=== PATIENT | female | born 1960 | race Caucasian/White ===

== ENCOUNTER 2016-07-20 07:15 | Day surgery (SDC) | payer OTHER ==
[~2016-07-20] VITALS: Ht 162.6 cm; Wt 56.2 kg
[~2016-07-20 07:15] MED LIST: ALBU8.5H2 INHALATION; BRIM5DRO OP; CETI10CA PO; CHOL40003 PO; CLON0.5T PO; CYCL10TA9 PO; DEXT350P5 PO; DOCU-41 PO; DULO30CA PO; DULO60CA42 PO; ESTR50GE TD; KEN25CR EXT; KLO5T PO; LEVO50TA6 PO; VIT1TABL83 PO
[2016-07-20 07:38] VITALS: BP 117/81; PULSE 90; O2SAT 100
[2016-07-20] MEDS ORDERED: 0.9% Sodium Chloride 1,000 ML IV PRN (07:48)
[2016-07-20] MEDS ORDERED: Sodium Chloride LOK Flush 10 mL Syringe IV PRN (07:50)
[2016-07-20] MEDS ORDERED: fentaNYL-PF 50 mCg/mL 2 mL Inj IVPUSH PRN (07:50)
[2016-07-20 08:57] VITALS: BP 101/66; PULSE 74; RESP 14; O2SAT 100
--- NOTE | 2016-07-20 08:58 | PCM.ENDEGD ---
EGD Date of Service: July 20, 2016 Physician Abdelrahman Sol MD Pre Procedure Diagnosis: Early satiety and abdominal pain Post Procedure Dx & Findings: Irregular Z line gastritis blunted duodenal folds Procedure Esophagogastroduodenoscopy PROCEDURE IN DETAIL: After proper sedation, Olympus video endoscope was inserted into patient's mouth and esophagus was successfully intubated. Scope introduced esophagus. Esophagus showed normal shiny whitish mucosa consistent with squamous cell component. Z line was intact at 36 cm from the incisors. However one spot appeared irregular and this was biopsied. Further advanced to the stomach. Stomach showed normal shiny mucosa with normal appearing rugae folds without any ulcer mass erosion in the cardia body and fundus. However in the antrum, there was redness edema consistent with mild gastritis. Biopsies obtained. Cardia fundus body antrum pylorus were all visualized. Retroflexion was done. Stomach was easily inflated and deflatable using air. Scope further events to the distal duodenum. Duodenum revealed normal villous structures with blunt duodenal folds without any mass ulcer erosion. 5 biopsies obtained. Impression Irregular Z line Antritis Blunted duodenal folds Recommendation Await biopsies Presedation Assessment Risks and Benefits Informed consent was obtained from the patient after all risks and benefits including but not limited to drug reaction, infection, pain, bleeding, perforation, as well as alternatives were discussed. Patient monitoring Continuous pulse oximetry, cardiac monitoring, blood pressure monitoring, IV access, and oxygen at 2L per nasal cannula. Periprocedural Fentanyl: Fentanyl 150mcg Incrementally Midazolam: Midazolam 9mg Incrementally Complications There were no periprocedural complications identified. Post Procedure Plan Post Procedure Recommendations 1. Restrict activities today. 2. Resume normal activities in the morning. 3. Resume medications. 4. GERD behavioral modification: - Avoid fatty, acidic, spicy, large meals - Do not lie down after meals - Do not eat or drink anything for at least 2 1/2 hours before going to bed at night - Discontinue tobacco and alcohol - Decrease or avoid caffeine - Avoid chocolate and mints - Decrease weight - Avoid aspirin and non steroidal anti-inflammatory agents (NSAID) such as Aleve, Advil, Mobic, Naproxen, Ibuprofen, etc 5. Add proton pump inhibitor. Take 30 minutes before 1st meal of the day. 6. Patient informed of normal post procedure side effects as bloating, drowsiness, blood streaking in the stool 7. If gastric biopsy reveal H.pylori, continue with appropriate treatment 8. If small bowel biopsy reveals celiac, continue with appropriate treatment 9. Please don't hesitate to call me with any questions Abdelrahman Sol MD July 20, 2016 08:58
--- NOTE | 2016-07-20 09:00 | PCM.ENDCOL ---
Colonoscopy Date of Service: July 20, 2016 Physician Abdelrahman Sol MD Pre Procedure Diagnosis: Change in bowel patterns constipation diarrhea resolved Post Procedure Dx & Findings: Polyp hemorrhoids Procedure Colonoscopy PROCEDURE IN DETAIL: Prep adequate Withdrawal time 12 minutes After unremarkable rectal examination the Olympus video colonoscope was inserted patient's anal canal and was advanced to cecum. Landmarks were identified including the ileocecal valve and appendiceal orifice. Scope further into the terminal ileum. Advanced 10 cm. Normal villous structure noted without any ulcer mass erosions. Scope was withdrawn systematically. Visualized colonic mucosa showed healthy shiny mucosa with normal healthy- appearing vasculature. In the cecum, there was a 1 mm polyp which was removed completely with cold forceps. In the transverse colon there were 2 polyps. One was 4 mm in size which was removed completely using cold snare. The other was 1 mm in size which was removed completely using cold forceps. In the rectum retroflexion was done which showed hemorrhoids. Anal canal was inspected carefully on the way out and hemorrhoids noted. Impression Polyp 3 status post complete removal Hemorrhoids Normal TI Recommendation Repeat colonoscopy 3 years Presedation Assessment Risks and Benefits Informed consent was obtained from the patient after all risks and benefits including but not limited to drug reaction, infection, pain, bleeding, perforation, as well as alternatives were discussed. Patient monitoring Continuous pulse oximetry, cardiac monitoring, blood pressure monitoring, IV access, and oxygen at 2L per nasal cannula. Complications There were no periprocedural complications identified. Post Procedure Plan Post Procedure Recommendations 1. Restrict activities today. 2. Resume normal activities in the morning. 3. Resume medications. 4. Patient informed of normal post procedure side effects as bloating, drowsiness, blood streaking in the stool. 5. average risk CRCS. If colon polyps come back as: -Hyperplastic- can repeat colonoscopy in 10 years -Tubular adenoma- repeat colonoscopy in 5 years -Tubulovillous/villous adenoma- repeat colonoscopy in 3 years -If any dysplasia- return to clinic as soon as possible 6. Please don't hesitate to call me with any questions. Abdelrahman Sol MD July 20, 2016 09:00
[2016-07-20 09:12] VITALS: BP 97/63; PULSE 69; RESP 16; O2SAT 100
--- NOTE | 2016-07-21 11:24 | PATH ---
SURGICAL PATHOLOGY Attending Physician:Abdelrahman Sol M.D. CASE STATUS: Signed Out PATIENT NAME: PETER PAULSON PID: [id number] : 1960 DATE COLLECTED:07/20/2016 15:36 SPECIMEN: 1: Esophagus, Biopsy 2: Duodenum, Biopsy 3: Gastric, Biopsy 4: Colon, Biopsy 5: Colon, Biopsy CLINICAL HISTORY: 1. DISTAL ESOPHAGUS 2. DUODENUM 3. GASTRIC 4. CECUM POLYP 5. TRANSVERSE COLON POLYP X2 FINAL DIAGNOSIS: 1.DISTAL ESOPHAGUS BIOPSY: SQUAMOUS MUCOSA AND GASTRIC CARDIA-TYPE MUCOSA NEGATIVE FOR SPECIALIZED METAPLASIA OF CANTU' S-TYPE ESOPHAGUS. Negative for dysplasia and malignancy. Rare eosinophil present within squamous intraepithelium consistent with changes of chronic reflux. 2.DUODENUM BIOPSY: FRAGMENTS OF NORMAL-APPEARING DUODENUM MUCOSA. Normal delicate mucosal villi present. Negative for significant inflammation, dysplasia and malignancy. 3.GASTRIC BIOPSY: MILD CHRONIC GASTRITIS INVOLVING ANTRAL AND FUNDIC MUCOSA. Negative for evidence of Helicobacter. Negative for intestinal metaplasia. Negative for dysplasia and malignancy. 4.CECUM POLYP: TUBULAR ADENOMA. 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 ICD10 CODE D12.0 GROSS DESCRIPTION: The specimen is received in five formalin filled containers labeled with the patient's name. 1). The specimen is sublabeled "distal esophagus" and consists of a 0.2 x 0.2 x 0.2 CM portion of tissue which is entirely submitted in cassette 1A. 2). The specimen is sublabeled "duodenum" and consists of 3 portions of tissue which aggregate to 0.2 x 0.2 x 0.2 CM. The specimen is entirely submitted in cassette 2A. 3). The specimen is sublabeled "gastric" and consists of 3 portions of tissue which aggregate to 0.4 x 0.4 x 0.2 CM. The specimen is entirely submitted in cassette 3A. 4). The specimen is sublabeled "cecum polyp" and consists of a 0.4 x 0.3 x 0.2 CM portion of tissue which is entirely submitted in cassette 4A. 5). The specimen is sublabeled "transverse colon polyp" and consists of 3 portions of tissue which aggregate to 0.6 x 0.4 x 0.3 CM. The specimen is entirely submitted in cassette 5A. 07/20/2016 [facility] MICRO DESCRIPTION: See diagnosis. ICD-9 CODES: CPT CODES: 1: 34869 2: 00588 3: 96352 4: 87858 5: 81757 Electronically Signed Out Adiel Bustillos MD [facility] [address], [place] [address] Technical component performed at [facility] [address], [place], [address]
== END 2016-07-20 23:59 | disposition home or self-care (01) ==
LOC: END 07:15
PROVIDERS: ATTEND Internal Medicine
DX: D12.0 Benign neoplasm of cecum (principal); D12.3 Benign neoplasm of transverse colon; K64.8 Other hemorrhoids; K29.50 Unspecified chronic gastritis without bleeding; K29.60 Other gastritis without bleeding; R63.4 Abnormal weight loss; F41.8 Other specified anxiety disorders; R19.7 Diarrhea, unspecified; Z79.51 Long term (current) use of inhaled steroids
CPT/HCPCS: 43239; 45380; 45385; 99153; G0500; J1200; J2250; J3010; J7030